=== PATIENT | male | born 1985 | race Caucasian/White ===

== ENCOUNTER 2019-01-22 19:54 | Emergency (ER) | payer SELFPAY ==
[~2019-01-22] VITALS: Ht 170.2 cm; Wt 78.0 kg
[~2019-01-22 19:54] MED LIST: ONDA4TAB6 PO
[2019-01-22 19:58] VITALS: BP 159/96
== END 2019-01-22 21:01 | disposition home or self-care (01) ==
LOC: ER 19:54
DX: Z00.00 Encounter for general adult medical examination without abnormal findings (principal); R01.1 Cardiac murmur, unspecified; Z79.899 Other long term (current) drug therapy
CPT/HCPCS: 99281